=== PATIENT | female | born 1980 | race Two or more races ===

== ENCOUNTER 2021-10-26 12:21 | Emergency (ER) | payer BC, OTHER ==
[~2021-10-26] VITALS: Ht 165.1 cm; Wt 104.3 kg
[2021-10-26 12:38] VITALS: BP 148/97
[2021-10-26] MEDS ORDERED: IBUPROFEN 800 MG TAB PO ONE (13:45)
== END 2021-10-26 14:00 | disposition home or self-care (01) ==
LOC: ER 12:21
DX: S93.401A Sprain of unspecified ligament of right ankle, initial encounter (principal); Z88.1 Allergy status to other antibiotic agents; Z88.0 Allergy status to penicillin; Z88.8 Allergy status to other drugs, medicaments and biological substances; X58.XXXA Exposure to other specified factors, initial encounter; Y93.89 Activity, other specified; Y92.89 Other specified places as the place of occurrence of the external cause; Y99.8 Other external cause status